=== PATIENT | male | born 1960 | race Caucasian/White ===

== ENCOUNTER → 2017-03-29 | Outpatient (REF) | payer BC ==
[~2017-03-29] MED LIST: PRED10TA PO; PROTPAK PO; TYLE325T5 PO
== END ==
LOC: M SFHCPLAZ 16:13
PROVIDERS: ATTEND Family Medicine
DX: N40.1 Benign prostatic hyperplasia with lower urinary tract symptoms (principal)
CPT/HCPCS: 36415; G0103

== ENCOUNTER → 2018-03-20 | Outpatient (REF) | payer OTHER ==
[2018-03-20 15:41] LABS: BASO % 0.5 % (0.0-1.0); EOS # 0.2 10^3/uL (0.0-0.50); EOS % 2.5 % (0.0-3.0); IMMATURE GRANULOCYTE % 0.3 % (0-3.0); LYMPH # 1.3 10^3/uL (1.5-4.5); LYMPH % 18.4 % (24.0-44.0); MEAN CORPUSCULAR HEMOGLOBIN 28.8 pg (27.0-33.0); MEAN CORPUSCULAR VOLUME 84.5 fl (80.0-96.0); MONO # 0.9 10^3/uL (0.0-0.8); MONO % 11.6 % (0.0-5.0); NEUTROPHILS # 4.9 10^3/uL (1.8-7.7); NEUTROPHILS % 66.7 % (36.0-66.0); PLATELET COUNT, AUTOMATED 267 10^3/uL (150-450); RED BLOOD COUNT 5.56 10^6/uL (4.30-6.10); RED CELL DISTRIBUTION WIDTH 12.4 % (11.5-14.5); WHITE BLOOD COUNT 7.3 10^3/uL (4.0-10.0)
== END ==
LOC: M SFHCPLAZ 14:18
DX: Z80.6 Family history of leukemia (principal)

== ENCOUNTER → 2018-09-29 | Outpatient (CLI) | payer OTHER ==
[2018-09-29 09:05] LABS: HEMATOCRIT 49.8 % (42.0-52.0); HEMOGLOBIN 16.9 g/dl (13.5-17.5); MEAN CORPUSCULAR HEMOGLOBIN 28.8 pg (27.0-33.0); MEAN CORPUSCULAR HGB CONC 33.9 g/dl (32.0-36.5); PLATELET COUNT, AUTOMATED 277 10^3/uL (150-450); RED BLOOD COUNT 5.86 10^6/uL (4.30-6.10); RED CELL DISTRIBUTION WIDTH 12.1 % (11.5-14.5); WHITE BLOOD COUNT 6.6 10^3/uL (4.0-10.0)
[2018-09-29 09:43] LABS: ALBUMIN 3.7 GM/DL (3.2-5.2); ALBUMIN/GLOBULIN RATIO 1.42 (1.00-1.93); ALKALINE PHOSPHATASE 96 U/L (45-117); ALT/SGPT 32 U/L (12-78); ANION GAP 5 MEQ/L (8-16); AST/SGOT 21 U/L (7-37); BILIRUBIN,TOTAL 0.6 MG/DL (0.2-1.0); BLOOD UREA NITROGEN 13 MG/DL (7-18); CALCIUM LEVEL 8.9 MG/DL (8.5-10.1); CARBON DIOXIDE LEVEL 29 MEQ/L (21-32); CHLORIDE LEVEL 108 MEQ/L (98-107); CHOLESTEROL LEVEL 187 MG/DL (<200); CHOLESTEROL RISK RATIO 4.452 (<5); CREATININE FOR GFR 0.87 MG/DL (0.70-1.30); GLOMERULAR FILTRATION RATE > 60.0 (>56); GLUCOSE, FASTING 102 MG/DL (70-100); HDL CHOLESTEROL 42 MG/DL (>40); LDL CHOLESTEROL 116 MG/DL (<100); NON-HDL-C 145 MG/DL; POTASSIUM SERUM 4.9 MEQ/L (3.5-5.1); SODIUM LEVEL 142 MEQ/L (136-145); TESTOSTERONE 532 NG/DL (241-827); THYROID STIMULATING HORMONE 0.778 uIU/ML (0.358-3.740); TOTAL 25(OH) VITAMIN D 54.9 NG/ML (30.0-100.0); TOTAL PROTEIN 6.3 GM/DL (6.4-8.2); TRIGLYCERIDES LEVEL 145 MG/DL (<150)
== END ==
LOC: M LAB 08:30
DX: R53.83 Other fatigue (principal); E55.9 Vitamin D deficiency, unspecified; E78.49 Other hyperlipidemia
CPT/HCPCS: 84403

== ENCOUNTER → 2018-12-09 | Outpatient (CLI) | payer OTHER ==
--- NOTE | 2018-12-09 16:24 | REP ---
CT IAC'S WITHOUT CONTRAST: HISTORY: Left suppurative otitis media. The internal auditory canal, cochlea, vestibules and semi-circular canals are normal in appearance. There is no carotid canal or jugular bulb dehiscence. The ossicles are normal in configuration and position. The scutum are intact. There are areas of dehiscence in the tegmen bilaterally. The middle ear cavities and mastoid air cells are clear. The visualized sinuses are clear. The nasopharynx is normal in appearance. IMPRESSION:Normal CT IAC's. Electronically Signed by Homero Ornelas MD 12/09/2018 04:30 P
== END ==
LOC: M RAD 15:10
PROVIDERS: ATTEND Otolaryngology
DX: H66.42 Suppurative otitis media, unspecified, left ear (principal)

== ENCOUNTER → 2019-03-31 | Outpatient (CLI) | payer OTHER ==
[~2019-03-31] MED LIST changes: +PRED-351 PO; -PRED10TA PO
--- NOTE | 2019-04-01 03:03 | REP ---
Clinical: Cough. Technique: PA and lateral. Comparison: 06/09/2015. Findings: Mediastinum and cardiac silhouette are normal. Pleuroparenchymal changes involving the right hemithorax including volume loss, circumferential pleural thickening, blunting of the diaphragmatic surface and increased pulmonary parenchymal markings are similar to prior examination. The left hemithorax is well-aerated and clear. The skeletal structures are grossly stable/intact. 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 No obvious acute process. If the patient remains symptomatic consider contrast enhanced chest CT for further investigation. Electronically Signed by Brennen Baltazar MD 04/01/2019 02:55 A
== END ==
LOC: M RAD 10:44
PROVIDERS: ATTEND Otolaryngology
DX: R91.8 Other nonspecific abnormal finding of lung field (principal)

== ENCOUNTER → 2019-04-15 | Outpatient (CLI) | payer OTHER ==
--- NOTE | 2019-04-16 05:46 | REP ---
Clinical: Shortness of breath. Technique: Axial noncontrast images from the thoracic inlet to the upper abdomen with coronal and sagittal re-formations. Comparison: 06/07/2014. Findings: Right-sided irregular pleural nodularity along with predominately right middle lobe and right lower lobe scarring remains stable compared to 2014. No acute consolidation, new significant nodule or mass lesion is appreciated. The left hemithorax is relatively well aerated and clear. No effusion. No pneumothorax. Tracheobronchial tree is patent. No obvious adenopathy. Mediastinum demonstrates mild atherosclerotic changes to the thoracic aorta without aneurysm. Mild atherosclerotic changes to the coronary arteries noted. No cardiomegaly or pericardial effusion. Musculoskeletal structures demonstrate age-related changes without focal osseous abnormality. Upper abdomen demonstrates bilateral hydronephrosis versus peripelvic cysts (right greater than left) which may warrant followup ultrasound examination. Normal bilateral adrenal glands identified. Impression: 1. 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 2. No new acute mediastinal or pleuroparenchymal process. 3. Limited upper abdomen suggests hydronephrosis versus peripelvic cysts (right greater than left) which may warrant ultrasound follow-up. Electronically Signed by Brennen Baltazar MD 04/16/2019 05:37 A
== END ==
LOC: M RAD 13:56
PROVIDERS: ATTEND Internal Medicine Pulmonary Disease
DX: R91.8 Other nonspecific abnormal finding of lung field (principal)

== ENCOUNTER → 2020-01-27 | Outpatient (CLI) | payer OTHER ==
--- NOTE | 2020-01-27 20:34 | REP ---
Chest x-ray: Three views. History: Acute bronchitis. Comparison chest x-ray: March 31, 2019. Findings: Comparison CT study April 15, 2019. Findings: There is chronic pleuroparenchymal scarring in the right base posteriorly. Right hemidiaphragm is somewhat elevated and the right lateral pleural angle is blunted. These are chronic changes. There is mild pleural thickening on the right laterally, also unchanged. No infiltrate is seen in the lung russell on either side. Heart is not enlarged. There are degenerative changes in the thoracic spine. Impression: Chronic pleuroparenchymal changes on the right. No acute infiltrate. Electronically Signed by Brayden Vital MD 01/28/2020 08:58 A
== END ==
LOC: M WUC 18:46
PROVIDERS: ATTEND Nurse Practitioner Family
DX: J20.9 Acute bronchitis, unspecified (principal)

== ENCOUNTER 2020-07-26 19:53 | Emergency (ER) | payer OTHER ==
[~2020-07-26] VITALS: Ht 185.4 cm; Wt 113.6 kg
[2020-07-26] MEDS ORDERED: KETOROLAC TROMETHAMINE 10 MG TAB PO ONE (20:15)
[2020-07-26 20:20] LABS: APPEARANCE, URINE HAZY (CLEAR); BACTERIA, URINE AUTO NEGATIVE (NEGATIVE); BILIRUBIN, URINE AUTO NEGATIVE (NEGATIVE); BLOOD, URINE BLOOD 3+ (NEGATIVE); COLOR, URINE YELLOW (YELLOW); GLUCOSE, URINE (UA) AUTO NEGATIVE (NEGATIVE); KETONE, URINE AUTO NEGATIVE (NEGATIVE); LEUKOCYTE ESTERASE, URINE AUTO NEGATIVE (NEGATIVE); MUCUS, URINE SMALL (NEGATIVE); NITRITE, URINE AUTO NEGATIVE (NEGATIVE); PROTEIN, URINE AUTO NEGATIVE (NEGATIVE); RBC, URINE AUTO TNTC /HPF (0-3); SPECIFIC GRAVITY URINE AUTO 1.024 (1.002-1.035); SQUAMOUS EPITHELIAL CELL UR AU 0 /HPF (0-6); UROBILINOGEN, URINE AUTO 0.2 mg/dL (0.0-2.0); WBC, URINE AUTO 3 /HPF (0-3)
[2020-07-26 20:20] LABS: HEMATOCRIT 47.7 % (42.0-52.0); HEMOGLOBIN 16.9 g/dl (13.5-17.5); MEAN CORPUSCULAR HEMOGLOBIN 30.3 pg (27.0-33.0); MEAN CORPUSCULAR HGB CONC 35.4 g/dl (32.0-36.5); MEAN CORPUSCULAR VOLUME 85.6 fl (80.0-96.0); PLATELET COUNT, AUTOMATED 299 10^3/uL (150-450); RED BLOOD COUNT 5.57 10^6/uL (4.30-6.10); WHITE BLOOD COUNT 8.8 10^3/uL (4.0-10.0)
[2020-07-26 20:53] LABS: ALT/SGPT 32 U/L (12-78); BILIRUBIN,TOTAL 0.5 MG/DL (0.2-1.0); BLOOD UREA NITROGEN 23 MG/DL (7-18); CALCIUM LEVEL 9.6 MG/DL (8.8-10.2); CARBON DIOXIDE LEVEL 28 MEQ/L (21-32); CHLORIDE LEVEL 107 MEQ/L (98-107); CREATININE FOR GFR 1.03 MG/DL (0.70-1.30); GLOMERULAR FILTRATION RATE > 60.0 (>49); GLUCOSE, FASTING 183 MG/DL (70-100); POTASSIUM SERUM 4.4 MEQ/L (3.5-5.1); SODIUM LEVEL 139 MEQ/L (136-145); TOTAL PROTEIN 6.8 GM/DL (6.4-8.2)
--- NOTE | 2020-07-26 21:26 | REPVR ---
PROCEDURE INFORMATION: Exam: US Scrotum Exam date and time: 07/26/2020 9:12 PM Age: 60 years old Clinical indication: Groin pain and scrotum pain; Additional info: L testicular pain sudden onset 1900 TECHNIQUE: Imaging protocol: Real-time ultrasound of the scrotum and contents with color Doppler and image documentation. COMPARISON: No relevant prior studies available. FINDINGS: Right testicle: Normal. No mass. No torsion. Normal vascular flow. Left testicle: Normal. No mass. No torsion. Normal vascular flow. Epididymides: Normal. Scrotum: Trace hydroceles. IMPRESSION: 1. Trace bilateral hydroceles. 2. Otherwise unremarkable scrotal ultrasound. Electronically signed by: Alessandro Ziegler On 07/26/2020 21:25:55 PM
--- NOTE | 2020-07-26 21:28 | REPVR ---
PROCEDURE INFORMATION: Exam: US Pelvis Limited, Male Exam date and time: 07/26/2020 9:12 PM Age: 60 years old Clinical indication: Pain; Other: Groin; Additional info: L testicular pain sudden onset 1900 TECHNIQUE: Imaging protocol: Real-time pelvic ultrasound with image documentation. COMPARISON: No relevant prior studies available. FINDINGS: Free fluid: No masses or fluid collections. Soft tissues: There is a left inguinal hernia containing peritoneal fat. No peristalsis is seen in the inguinal canal. No right inguinal hernia. IMPRESSION: 1. Left inguinal hernia containing peritoneal fat. No peristalsis is seen within the hernia. 2. No right inguinal hernia. Electronically signed by: Alessandro Ziegler On 07/26/2020 21:28:09 PM
[2020-07-26 22:41] LABS: CHLAMYDIA DNA AMPLIFICATION NEGATIVE (NEGATIVE); GC DNA AMPLIFICATION NEGATIVE (NEGATIVE)
[2020-07-26] MEDS ORDERED: MORPHINE 4 MG/ML 1ML VIAL/SYRINGE (J2270) IV ONE (22:45)
[2020-07-26] MEDS ORDERED: ISOVUE-370 76% 100ML VIAL As Ordered ONE (23:33)
--- NOTE | 2020-07-26 23:58 | REPVR ---
PROCEDURE INFORMATION: Exam: CT Abdomen And Pelvis With Contrast Exam date and time: 07/26/2020 11:35 PM Age: 60 years old Clinical indication: Abdominal pain; Localized; Lower; Patient HX: L inguinal hernia, hematuria; Additional info: L inguinal hernia, hematuria TECHNIQUE: Imaging protocol: Computed tomography of the abdomen and pelvis with intravenous contrast. Radiation optimization: All CT scans at this facility use at least one of these dose optimization techniques: automated exposure control; mA and/or kV adjustment per patient size (includes targeted exams where dose is matched to clinical indication); or iterative reconstruction. Contrast material: ISO; Contrast volume: 100 ml; Contrast route: INTRAVENOUS (IV); COMPARISON: US Testis 07/26/2020 9:07 PM FINDINGS: Lungs: Chronic appearing interstitial changes in the lung bases. Nonspecific 1.7 x 5.0 cm density in the posterior right lower lobe. Mediastinal space: Small hiatal hernia. Liver: Normal. No mass. Gallbladder and bile ducts: Normal. No calcified stones. No ductal dilation. Pancreas: Normal. No ductal dilation. Spleen: Normal. No splenomegaly. Adrenals: Normal. No mass. Kidneys and ureters: 3 mm calculus in the distal left ureter at the ureterovesical junction with mild left hydronephrosis. No other calculi in the left ureter. Small nonobstructing calyceal stone in the left kidney. Mild perinephric edema on the left. Multiple peripelvic cysts in both kidneys. No solid renal masses. No hydronephrosis on the right. Stomach and bowel: There is colonic diverticulosis without evidence of diverticulitis. The small bowel is unremarkable. Appendix: No evidence of appendicitis. Intraperitoneal space: Unremarkable. No free air. No significant fluid collection. Vasculature: Unremarkable. No abdominal aortic aneurysm. Lymph nodes: Unremarkable. No enlarged lymph nodes. Bladder: Unremarkable as visualized. Reproductive: Unremarkable as visualized. Bones/joints: There are advanced degenerative changes in the spine and pelvis. Multilevel central spinal canal stenosis. Multilevel moderate to severe neural foraminal stenoses in the lumbar spine. Soft tissues: There is a small fat containing left inguinal hernia. IMPRESSION: 1. Mild left hydronephrosis with obstructing 3 mm calculus in the distal left ureter at the ureterovesical junction. 2. Multiple peripelvic renal cysts. 3. Colonic diverticulosis without evidence of diverticulitis. 4. Small fat containing left inguinal hernia. 5. Interstitial scarring in the lung bases. Small hiatal hernia. Electronically signed by: Alessandro Ziegler On 07/26/2020 23:58:38 PM
[2020-07-27 00:31] VITALS: BP 131/76
[2020-07-27] MEDS ORDERED: FLOM0.4C39 PO (00:33)
[2020-07-27] MEDS ORDERED: TAMSULOSIN 0.4 MG CAP PO ONE (00:45)
== END 2020-07-27 01:08 | disposition home or self-care (01) ==
LOC: M ED 19:53
DX: N20.1 Calculus of ureter (principal); N50.812 Left testicular pain; N13.39 Other hydronephrosis; N43.3 Hydrocele, unspecified; K40.30 Unilateral inguinal hernia, with obstruction, without gangrene, not specified as recurrent; Z79.899 Other long term (current) drug therapy
CPT/HCPCS: 74177; 76857; 76870; 80053; 81001; 85027; 87661; 93976; 96374; 99284; J2270; Q9967

== ENCOUNTER → 2021-01-06 | Outpatient (CLI) | payer OTHER ==
[~2021-01-06] MED LIST changes: +FLOM0.4C39 PO; +KETO10TAB; +KETO10TAB PO; +OXYC1TAB23; +OXYC1TAB23 PO; +TAMS1CAP17
--- NOTE | 2021-01-06 11:28 | REP ---
INDICATION: HEMATURIA, LOW BACK PAIN COMPARISON: Comparison CT study July 26, 2020.. TECHNIQUE: Helical scanning is acquired in 4 mm axial images were reformatted. Coronal and sagittal MPR images were generated and reviewed. FINDINGS: Preliminary digital manager fleet radiograph shows a normal bowel gas pattern. Left lung base is clear. There is pleuroparenchymal fibrosis in the right lung base which is unchanged. No pleural effusion or upper abdominal ascites is seen. The liver and the spleen are normal in size homogeneous in texture. Gallbladder shows no abnormality. Pancreas is unremarkable. Normal adrenal glands are seen. There is pancolonic diverticulosis affecting the colon. There is no evidence of diverticulitis. A normal retrocecal appendix is seen. There are bilateral parapelvic cysts. There is left-sided hydronephrosis due to an obstructive 7 mm calculus at the ureteropelvic junction at the level of the lower pole of the left kidney. There is periureteral edema and some perinephric edema associated with this. No intrarenal calculus is seen on either side. No other ureteral stone is seen. No bladder calculus is no noted. No abdominal wall defect is seen. Degenerative spondylosis changes are seen in the lumbar spine. No bony destructive lesion. IMPRESSION: Hydronephrosis affecting the left kidney due to an obstructive 7 mm calculus in the left ureteropelvic junction. Rowan ureteral and perinephric edema is present. <Electronically signed by Burak Vital > 01/06/21 1126
== END ==
LOC: M RAD 10:45
PROVIDERS: ATTEND Physician Assistant
DX: N13.30 Unspecified hydronephrosis (principal); R31.9 Hematuria, unspecified; M54.5 Low back pain

== ENCOUNTER → 2021-01-06 | Outpatient (REF) | payer OTHER ==
[2021-01-06 18:02] LABS: BACTERIA, URINE AUTO 1+ (NEGATIVE); MUCUS, URINE SMALL (NEGATIVE); RBC, URINE AUTO 22 /HPF (0-3); SQUAMOUS EPITHELIAL CELL UR AU 0 /HPF (0-6); WBC, URINE AUTO 14 /HPF (0-3)
== END ==
LOC: M SMT 16:54
PROVIDERS: ATTEND Specialist
DX: N20.0 Calculus of kidney (principal)

== ENCOUNTER → 2021-01-06 | Outpatient (REF) | payer OTHER | LOC: M LAB REF 12:06 | PROVIDERS: ATTEND Physician Assistant | DX: R31.9 Hematuria, unspecified (principal) ==

== ENCOUNTER → 2021-01-06 | Outpatient (CLI) | payer OTHER ==
--- NOTE | 2021-01-06 09:12 | REP ---
INDICATION: HEMATURIA, LOW BACK PAIN COMPARISON: None. TECHNIQUE: Supine view of the abdomen and pelvis. FINDINGS: Evaluation of the urinary tract system is significantly limited due to overlying bowel gas pattern. Nephroureterolithiasis cannot be excluded. The bowel gas pattern is without obstruction or perforation. No organomegaly. No foreign body. Skeletal structures demonstrate age-related changes. IMPRESSION: Incomplete evaluation of the urinary tract system. If necessary consider noncontrast CT of the abdomen and pelvis for further investigation. <Electronically signed by Brennen Baltazar > 01/06/21 0909
== END ==
LOC: M WUC 08:45
PROVIDERS: ATTEND Physician Assistant
DX: R31.9 Hematuria, unspecified (principal); M54.5 Low back pain

== ENCOUNTER → 2021-01-06 | Outpatient (CLI) | payer OTHER ==
[2021-01-06 15:49] LABS: HEMATOCRIT 48.9 % (42.0-52.0); HEMOGLOBIN 16.1 g/dl (13.5-17.5); MEAN CORPUSCULAR HEMOGLOBIN 28.6 pg (27.0-33.0); MEAN CORPUSCULAR HGB CONC 32.9 g/dl (32.0-36.5); PLATELET COUNT, AUTOMATED 272 10^3/uL (150-450); RED BLOOD COUNT 5.62 10^6/uL (4.30-6.10); WHITE BLOOD COUNT 11.6 10^3/uL (4.0-10.0)
[2021-01-06 16:22] LABS: BLOOD UREA NITROGEN 26 MG/DL (7-18); CARBON DIOXIDE LEVEL 30 MEQ/L (21-32); CHLORIDE LEVEL 103 MEQ/L (98-107); CREATININE FOR GFR 1.27 MG/DL (0.70-1.30); GLOMERULAR FILTRATION RATE > 60.0 (>49); GLUCOSE, FASTING 87 MG/DL (70-100); POTASSIUM SERUM 5.1 MEQ/L (3.5-5.1); SODIUM LEVEL 139 MEQ/L (136-145)
--- NOTE | 2021-01-07 12:32 | ECGEPIP ---
[facility] Test Date: 2021-01-06 Pat Name: JORDY GASPAR Department: Room: - Gender: Male [employer] Att[employer]: RF : 1960 Requested By: EDE Juarez Order Number: [id number] Reading MD: Elder Garcia Measurements Intervals [place] Rate: 69 P: VA: QRS: -3 QRSD: 92 T: -7 QT: 402 QTc: 430 Interpretive Statements Somatic artifact Normal sinus rhythm Within normal limits Electronically Signed on 01-07-2021 12:32:08 EST by Elder Garcia
== END ==
LOC: M EKG 14:37
PROVIDERS: ATTEND Specialist
DX: Z01.818 Encounter for other preprocedural examination (principal); N20.0 Calculus of kidney

== ENCOUNTER 2021-01-09 09:16 | Day surgery (SDC) | payer OTHER ==
[~2021-01-09] VITALS: Ht 182.9 cm; Wt 118.4 kg
[~2021-01-09 09:16] MED LIST changes: -KETO10TAB; -KETO10TAB PO; -OXYC1TAB23; -OXYC1TAB23 PO; -TAMS1CAP17
[2021-01-09] MEDS ORDERED: KETO10TAB (09:57)
[2021-01-09] MEDS ORDERED: OXYC1TAB23 (09:57)
[2021-01-09] MEDS ORDERED: TAMS1CAP17 (09:57)
[2021-01-09] MEDS ORDERED: KETO10TAB PO (10:02)
[2021-01-09] MEDS ORDERED: FLOM0.4C39 PO (10:02)
[2021-01-09] MEDS ORDERED: OXYC1TAB23 PO (10:02)
[2021-01-09] MEDS ORDERED: MIDAZOLAM INJ 2MG/2ML VIAL (J2250 PER 1MG) As Ordered ONE (11:13)
[2021-01-09] MEDS ORDERED: LIDOCAINE 2% 100MG/5ML SDV (FOR ANES.) As Ordered ONE (11:13)
[2021-01-09] MEDS ORDERED: fentaNYL 100 MCG/2 ML INJECTION (J3010) As Ordered ONE (11:13)
[2021-01-09] MEDS ORDERED: propofoL 200 MG/20 ML VIAL As Ordered ONE ×2 (11:13→11:48)
[2021-01-09] MEDS ORDERED: CONRAY-60 60% 50ML VIAL (Q9961) As Ordered ONE (11:23)
[2021-01-09] MEDS ORDERED: ceFAZolin 1GM VIAL (J0690 PER 500MG) As Ordered ONE (11:23)
[2021-01-09] MEDS ORDERED: ceFAZolin 2 GM/D5W 50 ML IV BAG (J0690 PER 500MG) As Ordered ONE (11:23)
[2021-01-09] MEDS ORDERED: ceFAZolin SOD 2 GM in IV 1 EA IV ONE (11:30)
[2021-01-09] MEDS ORDERED: ceFAZolin SOD 1 GM in D5W MINI-BAG PLUS 50 ML IV ONE (11:30)
[2021-01-09] MEDS ORDERED: dexameTHASONE 4 MG/ML 1ML VIAL (J1100 PER 1MG) As Ordered ONE (11:49)
[2021-01-09] MEDS ORDERED: ONDANSETRON 4MG/2ML VIAL As Ordered ONE (11:51)
[2021-01-09] MEDS ORDERED: ACETAMINOPHEN 1000MG 100ML IV BTL (OFIRMEV) (J0131 PER 10MG) As Ordered ONE (11:51)
--- NOTE | 2021-01-09 12:14 | REP ---
INDICATION: PRE OP. COMPARISON: Comparison CT study and KUB 01/06/2021.. TECHNIQUE: Supine portable KUB, three views provided. FINDINGS: The bowel gas pattern is normal. Air and stool seen in a nondistended colon. Psoas margins and flank stripes are intact. No mass or organomegaly is seen. there is a calcific density overlying the medial edge of the psoas margin on the left 7 mm in diameter at the level of the L2-3 disc. This is compatible with a left ureteral stone seen on CT study from 01/06/2021. IMPRESSION: Findings consistent with left proximal ureteral calculus. <Electronically signed by Burak Vital > 01/09/21 1211
[2021-01-09] MEDS ORDERED: LIDOCAINE 2% 5ML JELLY UROJET As Ordered ONE (12:27)
[2021-01-09] MEDS ORDERED: KETOROLAC 60MG 2ML VIAL As Ordered ONE (12:29)
--- NOTE | 2021-01-09 12:50 | ROOPDOC ---
[facility] Report Of Operation Report of Operation DATE OF PROCEDURE: 01/09/21 PREPROCEDURE DIAGNOSES: Left 8 mm UPJ stone causing obstruction POSTPROCEDURE DIAGNOSES: Same PROCEDURE: Cystoscopy, left ureteroscopy, left laser lithotripsy, left 6 Greenlandic double-J ureteral stent placement SURGEON: Makayla Lynn MD OXYHYDROGEN WELDER: None ANESTHESIA: General ESTIMATED BLOOD LOSS: Approximately 0 mL. COMPLICATIONS: None REMARKS: Stone was pushed back into the kidney but was able to be dusted while there into very small stone fragments PROCEDURE NOTE: Patient is a 60-year-old gentleman who was seen at [facility] with severe left flank pain found to have 8 mm left UPJ stone. We then saw him in the office and discussed different options. He decided to come to the operating room for either cystoscopy and stent placement and possible ureteroscopy and laser lithotripsy. All options, alternatives, risks, benefits were discussed and informed consent was obtained. DESCRIPTION OF PROCEDURE: The patient was brought into the operating room with sequential compression devices in place and he was given Ancef 3 g preoperatively. Anesthesia was induced. He was then placed in low lithotomy position and careful attention was paid that his pressure points were well padded and protected. He was prepped and draped in usual fashion. Next a 21 Greenlandic cystoscope was inserted. The urethra was noted to be open without any evidence of lesions or strictures. The prostatic urethra had some minimal obstruction but with a slightly elevated bladder neck. Upon entering the bladder both ureteral orifices were seen. There was no evidence of stones, erythematous patches, lesions, or other significant abnormalities. Next a wire was placed from the left ureteral orifice up to the kidney under fluoroscopy. A second wire was then placed. A rigid cystoscope was inserted and the stone was pushed back into the kidney. A reentry catheter was then placed and a flexible scope was placed through this. The stone was seen in the lower pole of the kidney and I was able to use the dusting setting on the laser to break the stone into multiple very small fragments that should be able to pass without difficulty. Next a 6 Greenlandic double-J ureteral stent was placed with a nice curl seen in the left renal pelvis and down in the bladder. The patient's bladder was emptied. 5 mL of 1% lidocaine jelly was placed for postoperative discomfort. The patient was returned to the recovery room in stable condition. MAKAYLA LYNN MD Jan 09, 2021 12:50
[2021-01-09] MEDS ORDERED: HYDROMORPHONE HCL 0.5 MG/ 0.5 ML SYRINGE (J1170 PER 1) IV PRN (13:00)
[2021-01-09] MEDS ORDERED: fentaNYL 100 MCG/2 ML INJECTION (J3010) IV PRN (13:00)
[2021-01-09] MEDS ORDERED: LR 1,000 ML IV SCH (13:00)
[2021-01-09] MEDS ORDERED: ONDANSETRON 4MG/2ML VIAL IV PRN (13:00)
[2021-01-09] MEDS: oxyCODONE 5MG TAB PO PRN ×2 (13:39→14:45)
[2021-01-09] MEDS ORDERED: oxyCODONE 5MG TAB As Ordered ONE (14:44)
[2021-01-09 15:30] VITALS: BP 144/88
== END 2021-01-09 15:51 | disposition home or self-care (01) ==
LOC: M SDC 09:16
PROVIDERS: ATTEND Specialist
DX: N20.1 Calculus of ureter (principal); Z87.891 Personal history of nicotine dependence; Z88.8 Allergy status to other drugs, medicaments and biological substances
CPT/HCPCS: 52356; 74018; 74420; C1769; C1894; C2617; J0131; J0690; J1100; J1885; J2250; J2405; J3010; U0002

== ENCOUNTER → 2021-04-17 | Outpatient (CLI) | payer OTHER ==
[~2021-04-17] MED LIST changes: +KETO10TAB; +KETO10TAB PO; +OXYC1TAB23; +OXYC1TAB23 PO; +TAMS1CAP17
--- NOTE | 2021-04-17 15:37 | REP ---
INDICATION: HYDRONEPHROSIS. COMPARISON: CT 01/26/2021. TECHNIQUE: Real-time sonographic evaluation of the kidneys is performed. FINDINGS: Renal cortical echogenicity pattern is normal bilaterally and contours are smooth. Parapelvic cystic structures are seen on the right. There is no hydronephrosis bilaterally. No renal calculus is seen. The right kidney measures 13.7 x 6.4 x 7.7 cm. Left renal dimensions are 9.9 x 5.5 x 4.7 cm. The urinary bladder is unremarkable. Ureteral jets are visualized in the urinary bladder with Doppler color evaluation. IMPRESSION: Right parapelvic cysts. No renal calculus or hydronephrosis. <Electronically signed by Rayshawn Perez > 04/17/21 1532
== END ==
LOC: M RAD 10:41
PROVIDERS: ATTEND Urology
DX: N13.39 Other hydronephrosis (principal)

== ENCOUNTER → 2021-10-09 | Outpatient (REF) | payer OTHER ==
[2021-10-09 18:09] LABS: APPEARANCE, URINE CLEAR (CLEAR); BACTERIA, URINE AUTO NEGATIVE (NEGATIVE); BILIRUBIN, URINE AUTO NEGATIVE (NEGATIVE); BLOOD, URINE BLOOD NEGATIVE (NEGATIVE); COLOR, URINE YELLOW (YELLOW); GLUCOSE, URINE (UA) AUTO NEGATIVE (NEGATIVE); KETONE, URINE AUTO NEGATIVE (NEGATIVE); LEUKOCYTE ESTERASE, URINE AUTO NEGATIVE (NEGATIVE); NITRITE, URINE AUTO NEGATIVE (NEGATIVE); PROTEIN, URINE AUTO NEGATIVE (NEGATIVE); RBC, URINE AUTO 1 /HPF (0-3); SQUAMOUS EPITHELIAL CELL UR AU 0 /HPF (0-6); UROBILINOGEN, URINE AUTO 0.2 mg/dL (0.0-2.0); WBC, URINE AUTO 1 /HPF (0-3)
== END ==
LOC: M SMT 16:41
PROVIDERS: ATTEND Nurse Practitioner Women's Health
DX: R10.9 Unspecified abdominal pain (principal)

== ENCOUNTER → 2021-12-06 | Outpatient (CLI) | payer OTHER ==
--- NOTE | 2021-12-06 10:36 | REP ---
INDICATION: CHRONIC COUGH COMPARISON: 01/27/2020 TECHNIQUE: PA and lateral. FINDINGS: Mediastinum and cardiac silhouette along with diffuse bilateral pleuroparenchymal changes (right greater than left) are again noted. There is increased somewhat irregular soft tissue along the lateral aspect of the right lung zone possibly pleural based. No further acute consolidation, effusion, or pneumothorax. IMPRESSION: Chronic changes. Increasing soft tissue along the lateral aspect of the right hemithorax. Consider contrast-enhanced chest CT for further investigation. <Electronically signed by Brennen Baltazar > 12/06/21 1035
== END ==
LOC: M PLAIMG 10:19
PROVIDERS: ATTEND Student in an Organized Health Care Education/Training Program
DX: R05.9 Cough, unspecified (principal)

== ENCOUNTER → 2021-12-14 | Outpatient (CLI) | payer OTHER ==
[~2021-12-14] MED LIST changes: +ISOVUE-370 76% 100ML VIAL As Ordered ONE
== END ==
LOC: M RAD 08:55
PROVIDERS: ATTEND Student in an Organized Health Care Education/Training Program
DX: J84.10 Pulmonary fibrosis, unspecified (principal)

== ENCOUNTER → 2022-02-12 | Outpatient (CLI) | payer OTHER ==
[~2022-02-12] MED LIST changes: -ISOVUE-370 76% 100ML VIAL As Ordered ONE
[2022-02-12 11:14] LABS: MALB URINE SIEMENS 13.6 MG/L; MAU/CREAT RATIO 7.3 MCG/MG (0.0-30.0)
[2022-02-12 11:21] LABS: BLOOD UREA NITROGEN 18 MG/DL (7-18); CALCIUM LEVEL 9.3 MG/DL (8.8-10.2); CARBON DIOXIDE LEVEL 32 MEQ/L (21-32); CHLORIDE LEVEL 103 MEQ/L (98-107); CREATININE FOR GFR 0.87 MG/DL (0.70-1.30); GLOMERULAR FILTRATION RATE > 60.0 (>49); GLUCOSE, FASTING 100 MG/DL (70-100); PHOSPHORUS LEVEL 2.6 MG/DL (2.5-4.9); POTASSIUM SERUM 4.4 MEQ/L (3.5-5.1); SODIUM LEVEL 140 MEQ/L (136-145)
[2022-02-12 11:39] LABS: HEMOGLOBIN A1c 5.6 %
== END ==
LOC: M PLALAB 08:12
PROVIDERS: ATTEND Family Medicine
DX: I10 Essential (primary) hypertension (principal)

== ENCOUNTER → 2022-04-19 | Outpatient (CLI) | payer OTHER ==
[2022-04-19 11:09] LABS: ALBUMIN 3.5 GM/DL (3.2-5.2); BLOOD UREA NITROGEN 17 MG/DL (7-18); CALCIUM LEVEL 8.9 MG/DL (8.8-10.2); CARBON DIOXIDE LEVEL 30 MEQ/L (21-32); CHLORIDE LEVEL 108 MEQ/L (98-107); CREATININE FOR GFR 0.82 MG/DL (0.70-1.30); GLOMERULAR FILTRATION RATE > 60.0 (>49); GLUCOSE, FASTING 93 MG/DL (70-100); PHOSPHORUS LEVEL 3.1 MG/DL (2.5-4.9); POTASSIUM SERUM 4.5 MEQ/L (3.5-5.1); SODIUM LEVEL 141 MEQ/L (136-145); URIC ACID 4.8 MG/DL (3.5-7.2)
[2022-04-19 11:18] LABS: HEMOGLOBIN A1c 5.8 %
[2022-04-19 11:32] LABS: MALB URINE SIEMENS 8.9 MG/L
== END ==
LOC: M PLALAB 08:43
PROVIDERS: ATTEND Family Medicine
DX: I10 Essential (primary) hypertension (principal)

== ENCOUNTER → 2022-08-23 | Outpatient (CLI) | payer OTHER ==
[2022-08-23 16:55] LABS: APPEARANCE, URINE MANUAL CLEAR (CLEAR); COLOR, URINE MANUAL YELLOW (YELLOW)
[2022-08-23 16:56] LABS: BILIRUBIN, URINE MANUAL NEGATIVE (NEGATIVE); BLOOD URINE MANUAL NEGATIVE (NEGATIVE); GLUCOSE, URINE (UA) MANUAL NEGATIVE (NEGATIVE); KETONE, URINE MANUAL NEGATIVE (NEGATIVE); LEUKOCYTE ESTERASE, URINE MAN NEGATIVE (NEGATIVE); NITRITE, URINE MANUAL NEGATIVE (NEGATIVE); PROTEIN, URINE MANUAL NEGATIVE (NEGATIVE); SPECIFIC GRAVITY,URINE MANUAL 1.025 (1.002-1.035); UROBILINOGEN, URINE MANUAL NORMAL (NORMAL)
[2022-08-23 17:08] LABS: BASO # 0.1 10^3/uL (0.0-0.2); BASO % 0.6 % (0.0-1.0); EOS # 0.2 10^3/uL (0.0-0.5); EOS % 2.1 % (0.0-3.0); HEMATOCRIT 48.8 % (42.0-52.0); HEMOGLOBIN 16.5 g/dl (13.5-17.5); LYMPH # 1.5 10^3/uL (1.5-5.0); LYMPH % 13.9 % (24.0-44.0); MEAN CORPUSCULAR HGB CONC 33.8 g/dl (32.0-36.5); MEAN CORPUSCULAR VOLUME 85.9 fl (80.0-96.0); MONO # 1.1 10^3/uL (0.0-0.8); MONO % 10.6 % (2.0-8.0); NEUTROPHILS # 7.8 10^3/uL (1.5-8.5); NEUTROPHILS % 72.3 % (36.0-66.0); PLATELET COUNT, AUTOMATED 320 10^3/uL (150-450); RED BLOOD COUNT 5.68 10^6/uL (4.30-6.10); WHITE BLOOD COUNT 10.8 10^3/uL (4.0-10.0)
[2022-08-23 19:11] LABS: HEMOGLOBIN A1c 5.6 %
== END ==
LOC: M PLALAB 14:52
PROVIDERS: ATTEND Family Medicine
DX: R05.1 Acute cough (principal); R82.998 Other abnormal findings in urine

== ENCOUNTER 2022-09-30 23:34 | Emergency (ER) | payer OTHER ==
[2022-10-01] MEDS ORDERED: LIDOCAINE 2% MDV 20ML VIAL SC ONE (00:50)
[2022-10-01] MEDS ORDERED: BOOSTRIX/ADACEL VACCINE (DIPHTH/PERTUSS/ACELL/TETANUS) 0.5ML SYR IM.IMMUN ONE (01:30)
[2022-10-01] MEDS ORDERED: NEOSPORIN OINT 0.9 GM PKT TOP ONE (01:30)
[2022-10-01] MEDS ORDERED: traMADol 50 MG TAB (HOME DOSE PACK) PO ONE (01:30)
[2022-10-01 01:35] VITALS: BP 169/92
== END 2022-10-01 02:36 | disposition home or self-care (01) ==
LOC: EDBD 23:34 → M ED 23:34
DX: S00.03XA Contusion of scalp, initial encounter (principal); S63.501A Unspecified sprain of right wrist, initial encounter; S63.611A Unspecified sprain of left index finger, initial encounter; W01.198A Fall on same level from slipping, tripping and stumbling with subsequent striking against other object, initial encounter; Y99.0 Civilian activity done for income or pay; M19.042 Primary osteoarthritis, left hand; I10 Essential (primary) hypertension; Z88.8 Allergy status to other drugs, medicaments and biological substances; Z79.899 Other long term (current) drug therapy; Z23 Encounter for immunization

== ENCOUNTER 2022-12-28 13:07 | Emergency (ER) | payer OTHER ==
[~2022-12-28] VITALS: Ht 182.9 cm; Wt 115.9 kg
[2022-12-28] MEDS ORDERED: ACETAMINOPHEN 500 MG TAB PO ONE (14:20)
[2022-12-28 15:06] VITALS: BP 185/86
== END 2022-12-28 15:08 | disposition home or self-care (01) ==
LOC: EDBD 13:07 → M ED 13:07
DX: S00.93XA Contusion of unspecified part of head, initial encounter (principal); V43.52XA Car driver injured in collision with other type car in traffic accident, initial encounter; N40.0 Benign prostatic hyperplasia without lower urinary tract symptoms; F41.9 Anxiety disorder, unspecified; Z87.01 Personal history of pneumonia (recurrent); Z79.899 Other long term (current) drug therapy; Z88.8 Allergy status to other drugs, medicaments and biological substances

== ENCOUNTER 2024-07-02 01:21 | Emergency (ER) | payer BC, MEDICARE, OTHER ==
[~2024-07-02] VITALS: Ht 182.9 cm; Wt 125.0 kg
[2024-07-02] MEDS ORDERED: LIDOCAINE 5% OINT 30GM TUBE As Ordered ONE (06:41)
[2024-07-02] MEDS: LIDOCAINE 2% 5ML JELLY UROJET TOP ONE (06:49)
[2024-07-02] MEDS: MAGNESIUM CITRATE 300ML BTL PO ONE (07:36)
[2024-07-02] MEDS ORDERED: METO1TAB7 PO (08:12)
[2024-07-02] MEDS ORDERED: HOME MED LIST COMPLETE! XX SCH (08:15)
[2024-07-02 08:39] LABS: APPEARANCE, URINE CLEAR (CLEAR); BACTERIA, URINE AUTO NEGATIVE (NEGATIVE); BILIRUBIN, URINE AUTO NEGATIVE (NEGATIVE); BLOOD, URINE BLOOD NEGATIVE (NEGATIVE); COLOR, URINE YELLOW (YELLOW); GLUCOSE, URINE (UA) AUTO NEGATIVE (NEGATIVE); KETONE, URINE AUTO NEGATIVE (NEGATIVE); LEUKOCYTE ESTERASE, URINE AUTO NEGATIVE (NEGATIVE); MUCUS, URINE SMALL (NEGATIVE); NITRITE, URINE AUTO NEGATIVE (NEGATIVE); PROTEIN, URINE AUTO NEGATIVE (NEGATIVE); RBC, URINE AUTO 0 /HPF (0-3); SPECIFIC GRAVITY URINE AUTO 1.016 (1.002-1.035); SQUAMOUS EPITHELIAL CELL UR AU 0 /HPF (0-6); UROBILINOGEN, URINE AUTO 0.2 mg/dL (0.0-2.0); WBC, URINE AUTO 1 /HPF (0-3)
[2024-07-02] MEDS: METOCLOPRAMIDE INJ 10MG/2ML VIAL IV ONE (08:46)
[2024-07-02] MEDS: LACTULOSE 20GM/30ML SYRUP UDC PO ONE (09:10)
[2024-07-02 09:11] LABS: BASO # 0.1 10^3/uL (0.0-0.2); BASO % 0.5 % (0.0-1.0); EOS # 0.1 10^3/uL (0.0-0.5); EOS % 0.7 % (0.0-3.0); LYMPH # 1.2 10^3/uL (1.5-5.0); LYMPH % 9.4 % (24.0-44.0); MEAN CORPUSCULAR HEMOGLOBIN 29.3 pg (27.0-33.0); MEAN CORPUSCULAR VOLUME 86.2 fl (80.0-96.0); MONO # 1.4 10^3/uL (0.0-0.8); MONO % 10.5 % (2.0-8.0); NEUTROPHILS % 78.1 % (36.0-66.0); PLATELET COUNT, AUTOMATED 260 10^3/uL (150-450); WHITE BLOOD COUNT 12.8 10^3/uL (4.0-10.0)
[2024-07-02 09:36] LABS: LIPASE 65 U/L (12-53)
[2024-07-02 09:38] LABS: ALBUMIN 4.4 G/DL (3.2-5.2); ALKALINE PHOSPHATASE 94 U/L (46-116); ALT/SGPT 45 U/L (7.0-40); AST/SGOT 29 U/L (<34); BILIRUBIN,TOTAL 1.5 MG/DL (0.3-1.2); BLOOD UREA NITROGEN 14 MG/DL (9-23); CALCIUM LEVEL 9.5 MG/DL (8.3-10.6); CARBON DIOXIDE LEVEL 26 MMOL/L (20-31); CHLORIDE LEVEL 104 MMOL/L (98-107); CREATININE FOR GFR 0.82 MG/DL (0.70-1.30); GLOMERULAR FILTRATION RATE > 60.0 (>49); GLUCOSE, FASTING 105 MG/DL (74-106); POTASSIUM SERUM 4.7 MMOL/L (3.5-5.1); SODIUM LEVEL 137 MMOL/L (136-145); TOTAL PROTEIN 6.8 G/DL (5.7-8.2)
[2024-07-02] MEDS ORDERED: CIPR-249 PO (09:53)
[2024-07-02] MEDS ORDERED: ONDA-282 PO (09:53)
[2024-07-02] MEDS ORDERED: COLA1TAB PO (09:53)
[2024-07-02] MEDS: CIPROFLOXACIN 500MG TABLET PO ONE (10:05)
[2024-07-02 10:14] VITALS: BP 140/77; TEMP 97.6; O2SAT 98
== END 2024-07-02 10:16 | disposition home or self-care (01) ==
LOC: M ED 01:21
DX: K59.00 Constipation, unspecified (principal); R91.1 Solitary pulmonary nodule; A09 Infectious gastroenteritis and colitis, unspecified; N28.1 Cyst of kidney, acquired; K40.90 Unilateral inguinal hernia, without obstruction or gangrene, not specified as recurrent; K76.0 Fatty (change of) liver, not elsewhere classified; Z88.8 Allergy status to other drugs, medicaments and biological substances; Z79.2 Long term (current) use of antibiotics; Z79.899 Other long term (current) drug therapy
CPT/HCPCS: 74018; 74176; 80053; 81001; 83690; 85025; 96374; 99284; J2765

== ENCOUNTER → 2024-07-31 | Outpatient (CLI) | payer MEDICARE ==
[~2024-07-31] MED LIST changes: +CIPR-249 PO; +COLA1TAB PO; +METO1TAB7 PO; +ONDA-282 PO
[2024-08-10 17:51] LABS: ALPHA 2-MACROGLOBULINS,QN 171 mg/dL (106-279); ALT (SGPT) P5P 42 U/L (9-46); APOLIPOPROTEIN A-1 166 mg/dL (94-176); BILIRUBIN, TOTAL 0.5 mg/dL (0.2-1.2); FIBROSIS SCORE 0.25; FIBROSIS STAGE NO FIBROSIS (F0); GGT 32 U/L (3-70); HAPTOGLOBIN 85 mg/dL (43-212); NECROINFLAM ACT GRADE NO ACTIVITY (A0); NECROINFLAM ACT SCORE 0.22
== END ==
LOC: M PLALAB 10:50
PROVIDERS: ATTEND Family Medicine
DX: M19.072 Primary osteoarthritis, left ankle and foot (principal); M79.672 Pain in left foot; K76.0 Fatty (change of) liver, not elsewhere classified

== ENCOUNTER → 2024-08-14 | Outpatient (CLI) | payer MEDICARE | LOC: M RAD 13:57 | PROVIDERS: ATTEND Family Medicine | DX: N28.1 Cyst of kidney, acquired (principal) ==

== ENCOUNTER → 2024-09-11 | Outpatient (CLI) | payer MEDICARE | LOC: M PLALAB 11:43 | PROVIDERS: ATTEND Family Medicine | DX: M79.672 Pain in left foot (principal) ==

== ENCOUNTER → 2025-03-26 | Outpatient (CLI) | payer MEDICARE ==
[~2025-03-26] MED LIST changes: -FLOM0.4C39 PO; +TAMS-18 PO
[2025-03-26 14:47] LABS: BASO # 0.1 10^3/uL (0.0-0.2); BASO % 1.1 % (0.0-1.0); EOS # 0.2 10^3/uL (0.0-0.5); EOS % 2.2 % (0.0-3.0); HEMATOCRIT 49.4 % (42.0-52.0); HEMOGLOBIN 16.3 g/dl (13.5-17.5); LYMPH # 1.6 10^3/uL (1.5-5.0); LYMPH % 18.5 % (24.0-44.0); MEAN CORPUSCULAR VOLUME 87.9 fl (80.0-96.0); MONO # 1.1 10^3/uL (0.0-0.8); MONO % 13.4 % (2.0-8.0); NEUTROPHILS # 5.5 10^3/uL (1.5-8.5); NEUTROPHILS % 64.3 % (36.0-66.0); PLATELET COUNT, AUTOMATED 302 10^3/uL (150-450); RED BLOOD COUNT 5.62 10^6/uL (4.30-6.10); WHITE BLOOD COUNT 8.5 10^3/uL (4.0-10.0)
[2025-03-26 15:15] LABS: C REACTIVE PROTEIN QUANTITATIV < 0.50 MG/DL (<1.0)
[2025-03-26 15:25] LABS: PROCALCITONIN 0.07 ng/ml
== END ==
LOC: M PLALAB 10:22
PROVIDERS: ATTEND Family Medicine
DX: R05.3 Chronic cough (principal)

== ENCOUNTER → 2025-03-26 | Outpatient (REF) | payer MEDICARE ==
[~2025-03-26] MED LIST changes: +AMLO1TAB25 PO
== END ==
LOC: M SFHCPLAZ 10:16
PROVIDERS: ATTEND Family Medicine
DX: R05.3 Chronic cough (principal); Z53.8 Procedure and treatment not carried out for other reasons

== ENCOUNTER → 2025-04-08 | Day surgery (SDC) | payer MEDICARE ==
[~2025-04-08] VITALS: Ht 182.9 cm; Wt 130.2 kg
[~2025-04-08] MED LIST changes: +GLYCOPYRROLATE INJ 0.2 MG/ML 2 ML VIAL As Ordered ONE; +LIDOCAINE 2% 100MG/5ML SDV (FOR ANES.) As Ordered ONE; +propofoL 200 MG/20 ML VIAL As Ordered ONE
[2025-04-08 08:31] VITALS: TEMP 97
[2025-04-08 08:48] VITALS: BP 137/77; O2SAT 95
== END | disposition home or self-care (01) ==
LOC: M OPP 06:30
PROVIDERS: ATTEND Internal Medicine Gastroenterology
DX: K63.5 Polyp of colon (principal); K57.30 Diverticulosis of large intestine without perforation or abscess without bleeding; K64.8 Other hemorrhoids; I10 Essential (primary) hypertension; K76.0 Fatty (change of) liver, not elsewhere classified; M19.90 Unspecified osteoarthritis, unspecified site; F41.9 Anxiety disorder, unspecified; Z87.891 Personal history of nicotine dependence; Z88.1 Allergy status to other antibiotic agents; Z79.899 Other long term (current) drug therapy
CPT/HCPCS: 45385; 88305; J1596

== ENCOUNTER → 2025-08-23 | Outpatient (CLI) | payer MEDICARE ==
[~2025-08-23] MED LIST changes: -GLYCOPYRROLATE INJ 0.2 MG/ML 2 ML VIAL As Ordered ONE; -LIDOCAINE 2% 100MG/5ML SDV (FOR ANES.) As Ordered ONE; -propofoL 200 MG/20 ML VIAL As Ordered ONE
== END ==
LOC: M RAD 06:37
PROVIDERS: ATTEND Physician Assistant
DX: S83.402A Sprain of unspecified collateral ligament of left knee, initial encounter (principal); M25.562 Pain in left knee; W18.30XA Fall on same level, unspecified, initial encounter; Y92.009 Unspecified place in unspecified non-institutional (private) residence as the place of occurrence of the external cause